=== PATIENT | female | born 1935 | race Caucasian/White ===

== ENCOUNTER → 2016-12-22 | Outpatient (CLI) | payer MEDICARE, OTHER ==
[~2016-12-22] VITALS: Ht 154.9 cm; Wt 76.2 kg
[~2016-12-22] MED LIST: ADV100INH INH; ALBU17IN INH; ATEN50TA2 PO; BENA25CA4 PO; LIDOCAINE 2% INJ 100 MG/5 ML SYRINGE As Ordered ONE; NS 1,000 ML IV ONE; PROPOFOL 500 MG/50 ML VIAL As Ordered ONE; RANI150T PO; SIMETHICONE 40MG/0.6ML DROPS 30ML As Ordered ONE; TRIA37.53 PO
--- NOTE | 2016-12-22 07:51 | ROOR ---
Patient Name: Julia Andersen Procedure Date: 12/22/2016 7:32 AM Date of : 1935 Age: 81 Room: [facility] Gender: Female Note Status: Finalized Procedure: Upper GI endoscopy Indications: Dysphagia, Heartburn Providers: Gt CRAMER MD Referring MD: Wilfred Hartmann MD Requesting Provider: Medicines: Monitored Anesthesia Care Complications: No immediate complications. Procedure: Pre-Anesthesia Assessment: - The heart rate, respiratory rate, oxygen saturations, blood pressure, adequacy of pulmonary ventilation, and response to care were monitored throughout the procedure. The Endoscope was introduced through the mouth, and advanced to the second part of duodenum. The upper GI endoscopy was accomplished without difficulty. The patient tolerated the procedure well. Findings: A low-grade of narrowing Schatzki ring (acquired) was found at the gastroesophageal junction. A TTS dilator was passed through the scope. Dilation with an 18-19-20 mm balloon dilator was performed to 20 mm. The dilation site was examined and showed no change. This was biopsied with a cold forceps for histology. (and to fracture lip of ring) A small hiatal hernia was present. The entire examined stomach was normal. The examined duodenum was normal. Impression: - Low-grade of narrowing Schatzki ring. Dilated. Biopsied. - Small hiatal hernia. - Normal stomach. - Normal examined duodenum. Recommendation: - Recommend acid suppression medication. - Telephone endoscopist for pathology results in 2 weeks. - Observe patient's clinical course. - Follow an antireflux regimen. Gt Cramer MD Gt CRAMER MD 12/22/2016 7:51:33 AM This report has been signed electronically. Number of Addenda: 0 Note Initiated On: 12/22/2016 7:32 AM Estimated Blood Loss: Estimated blood loss: none.
[2016-12-22 08:11] VITALS: BP 138/63
== END | disposition home or self-care (01) ==
LOC: M OPP 06:28
PROVIDERS: ATTEND Internal Medicine Gastroenterology
DX: R13.10 Dysphagia, unspecified (principal); R12 Heartburn; K22.2 Esophageal obstruction; K44.9 Diaphragmatic hernia without obstruction or gangrene; I10 Essential (primary) hypertension; M10.9 Gout, unspecified; M19.90 Unspecified osteoarthritis, unspecified site; J45.909 Unspecified asthma, uncomplicated; J44.9 Chronic obstructive pulmonary disease, unspecified; Z87.891 Personal history of nicotine dependence; Z88.8 Allergy status to other drugs, medicaments and biological substances; Z79.899 Other long term (current) drug therapy